=== PATIENT | male | born 1980 | race Caucasian/White ===

== ENCOUNTER 2023-11-09 22:25 | Emergency (ER) | payer MEDICAID, SELFPAY ==
[2023-11-09 22:34] VITALS: BP 121/79; PULSE 89; RESP 16; TEMP 36.2; O2SAT 96; BMI 34.9
[2023-11-09 22:56] LABS: MANUAL DIFF FLAG NO
[2023-11-09 22:57] LABS: Basophils Absolute Auto 0.1 X10*3/uL (0.0-0.2); Basophils Percent Auto 1.3 % (0-2); Eosinophils Absolute Auto 0.9 X10*3/uL (0.0-0.4); Eosinophils Percent Auto 12.1 % (0-4); Hemoglobin 13.3 g/dl (14.0-18.0); Imm Gran Abs Auto 0.02 X10*3/uL (0.00-0.03); Imm Gran Pct Auto 0.3 % (0.0-0.4); Lymphocytes Absolute Auto 1.7 X10*3/uL (1.2-4.9); Lymphocytes Percent Auto 22.6 % (20-40); Mean Corpuscular HGB Conc 34.1 g/dl (31.0-36.0); Mean Corpuscular Hemoglobin 28.8 pg (27.0-33.0); Mean Corpuscular Volume 84.4 fL (80.0-98.0); Monocytes Absolute Auto 0.7 X10*3/uL (0.1-1.2); Monocytes Percent Auto 9.3 % (2-11); Neutrophils Percent Auto 54.4 % (45-73); Platelet Count 267 X10*3/uL (160-400); Red Blood Count 4.62 X10*6/uL (4.60-5.80); Red Cell Distribution Width 12.7 % (11.0-16.0); White Blood Count 7.4 X10*3/uL (4.8-10.8)
[2023-11-09 23:12] LABS: Alanine Aminotransferase 13 U/L (0-40); Albumin Level 4.3 g/dL (3.5-5.0); Alkaline Phosphatase 54 U/L (39-117); Anion Gap 14 (12-20); Aspartate Amino Transferase 18 U/L (5-37); Bilirubin Total 0.3 mg/dL (0.0-1.0); Blood Urea Nitrogen 13 mg/dL (9-16); Calcium 9.3 mg/dL (8.4-10.2); Carbon Dioxide 22 mmol/L (22-29); Chloride 108 mmol/L (96-108); Creatinine Clr Calc Pharmacy 82.3; Estimated Glomerular Filt Rate > 60; Glucose Random 100 mg/dL (60-115); Potassium 3.8 mmol/L (3.3-5.1); Sodium 140 mmol/L (135-145); Total Protein 7.2 g/dL (6.5-8.0)
[2023-11-10] MEDS: Magnesium Hydrox/Alum Hydrox 30 ML ORAL.SUSP PO (00:30)
[2023-11-10] MEDS: Sucralfate Oral Suspension 1 GM/10 ML ORAL.SUSP PO (00:30)
[2023-11-10] MEDS: Lidocaine HCl Viscous 2 % 15 ML SOLUTION 10 ML MUCOUS MEM (00:30)
--- NOTE | 2023-11-10 01:09 | ED_ITS ---
HPI - Abdominal Pain General Chief Complaint: Abdominal Pain Stated Complaint: abd pain Time Seen by Provider: 11/10/23 00:55 Source: patient Mode of arrival: ambulatory History of Present Illness HPI narrative: 43-year-old male with complaints of epigastric pain that has been ongoing for 5 days and describes it as burning especially after eating he is tried taking Gas- X tablets without relief and has no primary care doctor. Related Data Previous Rx's Medication Instructions Recorded omeprazole 40 mg capsule,delayed 40 mg PO DAILY #30 caps 11/10/23 release Allergies Allergy/AdvReac Type Severity Reaction Status Date / Time No Known Allergies Allergy Verified 11/09/23 22:34 Review of Systems Review of Systems Pertinent positives and negatives as stated in HPI PMFSH Past Medical History Source: nursing notes reviewed Social History Social History Advance Directives: No Advance Directives Information Provided: No Physical Exam ED Vital Signs: Vital Signs - 24 hr 11/09/23 22:34 Temperature 97.1 F Pulse Rate 89 Respiratory Rate 16 Blood Pressure 121/79 Pulse Oximetry 96 Oxygen Delivery Method Room Air BMI result Body Mass Index 34.9 VITAL SIGNS: Reviewed. GENERAL: Well developed, well nourished, in no acute distress. HEAD: Normocephalic/atraumatic EYES: PERRLA, EOMI EARS: Ext canals without abnormality LUNGS: Normal breath sounds. No adventitious sounds or accessory muscle use. SpO2<96> CARDIOVASCULAR: Regular rate and rhythm without noted murmurs ABDOMEN: Soft, non-tender, non-distended with bowel sounds. MUSCULOSKELETAL: No tenderness, deformities, or effusions noted on gross inspection. EXTREMITIES: No cyanosis, clubbing or edema. SKIN: Inspection of the skin reveals no rashes NEUROLOGIC: Alert and oriented x 4. Strength and sensation to light touch were grossly intact x 4. Medical Decision Making Medical Decision Making MDM Narrative: 43-year-old male with history and clinical presentation, DDX: Gastritis, ulcer, no clinical suspicion for appendicitis/cholecystitis/pancreatitis and patient denies alcohol use. He denies any constitutional symptoms that would lend themselves to infectious etiology within the abdomen such as fever, chills, nausea, vomiting. Reviewed all investigations and hematologic indices are negative for leukocytosis or left shift, there is a normocytic anemia and no thrombocytopenia and no endorsement of any hematemesis. Chemistries seizure grossly within normal limits without evidence of RYAN/electrolyte or liver enzyme derangements. Patient received GI cocktail and Carafate and reports significant relief in symptoms. He is otherwise discharged on a course of omeprazole for 30 days. Differential Diagnosis Differential Diagnoses: The differential diagnosis associated with the presentation includes Please see the discussion above Admission/Observation Consideration of admission/observation: Escalation of care including admission/observation considered Please see the discussion above Lab Data MDM Lab Attestation statement: I reviewed the patient's lab results. Please see the discussion above 11/09/23 22:53 11/09/23 22:53 Labs: Lab Results 11/09/23 Range/Units 22:53 WBC 7.4 (4.8-10.8) X10*3/uL RBC 4.62 (4.60-5.80) X10*6/uL Hgb 13.3 L (14.0-18.0) g/dl Hct 39.0 L (42.0-52.0) % MCV 84.4 (80.0-98.0) fL MCH 28.8 (27.0-33.0) pg MCHC 34.1 (31.0-36.0) g/dl RDW 12.7 (11.0-16.0) % Plt Count 267 (160-400) X10*3/uL MPV 10.0 (9.4-12.4) fL Immature Gran % (Auto) 0.3 (0.0-0.4) % Neut % (Auto) 54.4 (45-73) % Lymph % (Auto) 22.6 (20-40) % [place] % (Auto) 9.3 (2-11) % Eos % (Auto) 12.1 H (0-4) % Baso % (Auto) 1.3 (0-2) % Lymph # (Auto) 1.7 (1.2-4.9) X10*3/uL [place] # (Auto) 0.7 (0.1-1.2) X10*3/uL Eos # (Auto) 0.9 H (0.0-0.4) X10*3/uL Baso # (Auto) 0.1 (0.0-0.2) X10*3/uL Abs Immat Gran (auto) 0.02 (0.00-0.03) X10*3/uL Absolute Neuts (auto) 4.0 (2.0-8.3) x10*3/uL Absolute Nucleated RBC 0.000 (0.0-0.012) X10*3/uL Nucleated RBC % (auto) 0.0 (0.0-0.2) /100WBC Sodium 140 (135-145) mmol/L Potassium 3.8 (3.3-5.1) mmol/L Chloride 108 (96-108) mmol/L Carbon Dioxide 22 (22-29) mmol/L Anion Gap 14 (12-20) BUN 13 (9-16) mg/dL Creatinine 1.00 (0.5-1.4) mg/dL Estim Creat Clear Calc 82.3 Estimated GFR > 60 Random Glucose 100 (60-115) mg/dL Calcium 9.3 (8.4-10.2) mg/dL Total Bilirubin 0.3 (0.0-1.0) mg/dL AST 18 (5-37) U/L ALT 13 (0-40) U/L Alkaline Phosphatase 54 (39-117) U/L Total Protein 7.2 (6.5-8.0) g/dL Albumin 4.3 (3.5-5.0) g/dL Medications Administered Discontinued Medications Generic Name Dose Route Start Last Admin Trade Name Freq PRN Reason Stop Dose Admin Al Hydroxide/Mg Hydroxide 30 ml 11/09/23 23:58 11/10/23 00:30 Magnesium Hydrox/Alum Hydrox 30 Ml Oral.Susp PO 11/09/23 23:59 30 ml ONCE ONE Administration Lidocaine HCl 10 ml 11/09/23 23:58 11/10/23 00:30 Lidocaine Hcl Viscous 2 % 15 Ml Solution MUCOUS MEM 11/09/23 23:59 10 ml ONCE ONE Administration Sucralfate 1 gm 11/09/23 23:58 11/10/23 00:30 Sucralfate Oral Suspension 1 Gm/10 Ml Oral.Susp PO 11/09/23 23:59 1 gm ONCE ONE Administration Discharge Plan Discharge Clinical Impression: Gastritis, GERD (gastroesophageal reflux disease) Patient Disposition: Home, Self-Care Instructions: Gastritis (ED), Diet for Stomach Ulcers and Gastritis (ED), Gastroesophageal Reflux Disease (ED) Additional Instructions: 1. Dei-lhe tiff receita para ajudar a controlar os sintomas de ?cido que voc? est? sentindo. 2. Por favor, estabele?a atendimento com um m?dico de aten??o prim?luciano o mais r?pido poss?radha. Retorne ao pronto-nirav se houver agravamento dos sintomas. 1. I have given you a prescription to help control the acid symptoms that you are experiencing. 2. Please establish care with a primary care doctor at your earliest convenience. Return to the ER for any worsening symptoms. Prescriptions: New omeprazole 40 mg capsule,delayed release(DR/EC) 40 mg PO DAILY Qty: 30 0RF Print Language: Mongolian
[2023-11-10 01:22] VITALS: PULSE 80; RESP 16; O2SAT 96
== END 2023-11-10 01:23 | disposition home or self-care (01) ==
PROVIDERS: Emergency Provider Student in an Organized Health Care Education/Training Program
DX: K29.70 Gastritis, unspecified, without bleeding (principal); K21.9 Gastro-esophageal reflux disease without esophagitis; R10.13 Epigastric pain; Z79.899 Other long term (current) drug therapy
CPT/HCPCS: 36415; 80053; 85025; 99283

== ENCOUNTER 2025-06-13 11:51 | Emergency (ER) | payer MEDICAID, OTHER, SELFPAY ==
--- NOTE | ~2025-06-13 | XR_ITS ---
EXAMINATION: XR THUMB, LEFT CLINICAL INFORMATION: L thumb lac while cutting wood COMPARISON: None available. TECHNIQUE: Three views of the left thumb. FINDINGS: No definite fracture, dislocation, or suspicious bone lesion. There is normal alignment. Joint spaces are normal. Soft tissues appear normal. No radiopaque foreign body or soft tissue gas present. XR/XR finger LT min 2V IMPRESSION: Normal radiographs of the left thumb. Electronically signed by: Charlie Curry MD 06/13/2025 12:51 PM EDT
[2025-06-13 11:57] VITALS: PULSE 68; RESP 18; TEMP 36.3; O2SAT 98; BMI 29.9
--- NOTE | 2025-06-13 12:05 | ED.WOUNDLAC ---
HPI - Wound/Laceration General Chief Complaint: Wound/Laceration Stated Complaint: Finger lac Time Seen by Provider: 06/13/25 11:59 Source: patient, family and bilingual interpreter (Nauruan [place] Irish) Mode of arrival: ambulatory Limitations: language barrier (Nauruan Northern Irish) History of Present Illness ED Provider: KARINA LEUNG PA-C HPI narrative: 44 year old left hand dominant male presents to the ED today for evaluation of laceration to left thumb sustained yesterday while using a saw to cut wood. Reports the saw slipped, causing a laceration to the tip of his left thumb. He does not believe there is any wood/ metal retained in the laceration. He immediately washed the area out. He states is tetanus is UTD as of 3 years ago. Denies difficulty moving the left thumb, denies numbness/weakness/thingling. Related Data Previous Rx's ?Medication ?Instructions ?Recorded omeprazole 40 mg capsule,delayed 40 mg PO DAILY #30 caps 11/10/23 release neomycin-bacitracn Zn-polymyx 3.5 1 appl topical DAILY #14.2 grams 06/13/25 mg-400 unit-5,000 unit/gram top oint (Neosporin ([id number])) Allergies Allergy/AdvReac Type Severity Reaction Status Date / Time No Known Allergies Allergy Verified 06/13/25 12:00 Review of Systems Review of Systems: Yes all other systems are reviewed and are negative PMFSH Past Medical History Attestation statement: The following information was validated with the patient. Source: old records reviewed and nursing notes reviewed Social History Social History Advance Directives: No Advance Directives Information Provided: Yes Physical Exam Vital Signs: Vital Signs: Last Vital Signs Temp 97.3 F 06/13/25 14:13 Pulse 68 06/13/25 14:13 Resp 18 06/13/25 14:13 BP 00/00 L 06/13/25 14:13 Pulse Ox 98 06/13/25 14:13 O2 Del Method Room Air 06/13/25 14:13 BMI result Body Mass Index 29.9 General: Well appearing, in no acute distress. Skin: +2 cm linear laceration noted to left 1st digit just proximal to nail base wrapping around to finger pad. no active bleeding or obvious FB. no discharge/crusting/erythema. ttp. no nail involvement. Head: Normocephalic, atraumatic. EENT: Hearing is intact b/l. Conjunctiva clear. Sclera is anicteric. PERRLA. EOM intact. Moist mucous membranes.? Neck: Supple without LAD. FROM. Trachea midline.? Cardiac: Chest wall symmetric. RRR Back: No midline spinous or paraspinal tenderness. No step off deformity. Ext: +FROM intact to left 1st digit. no noted swelling or sausage digit. sensation intact. 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 Neuro: AOx3. Normal speech. Ambulating with steady gait. Course Course Course Narrative: X-ray left thumb without radiopaque foreign body. Laceration soaked in saline and iodine. No noted retained foreign bodies. Deep structures intact. No concern for ligament or tendon injury. No nail bed involvement. Laceration repaired with 3 3-0 sutures. The center of the laceration was difficult to approximate due to swelling secondary to sustaining laceration approx 24 hours ago. Patient was not tolerating the middle suture so Steri-Strips were placed. advised to return to the ED for suture removal. Patient has remained stable throughout ED visit today. Discussed worrisome signs and symptoms and when to return to the ED. All questions answered at this time. Patient is agreeable with disposition and stable for discharge. Medications Administered Discontinued Medications Generic Name Dose Route Start Last Admin Trade Name Freq PRN Reason Stop Dose Admin Lidocaine HCl 10 ml 06/13/25 12:04 06/13/25 12:17 Lidocaine Hcl 1 % Mpf 5 Ml Vial INFILTRATI 06/13/25 12:05 10 ml ONCE ONE Administration Medical Decision Making Medical Decision Making [facility] Narrative: 44 year old left hand dominant male presents to the ED today for evaluation of laceration to left thumb sustained yesterday while using a saw to cut wood. vitals stable, he is well appearing and in NAD. on exam, 2 cm linear laceration noted to left 1st digit just proximal to nail base wrapping around to finger pad. no active bleeding or obvious FB. no discharge/crusting/erythema. ttp. no nail involvement. Differential diagnosis includes laceration, abrasion. Unlikely fracture, retained foreign body, ligament/tendon injury, nail bed injury. Plan for x-ray, laceration repair and disposition. Differential Diagnosis Differential Diagnoses: The differential diagnosis associated with the presentation includes as above. Admission/Observation not indicated Independent Interpretation I performed an independent interpretation of an: Plain X-Ray Interpretation: X-ray left thumb without radiopaque foreign body Radiology Impression Discussion of test interpretation with radiology: I have reviewed the radiologist's reading. Radiologist Impression: Procedure(s): XR finger LT min 2V Accession Number(s): [id number] cc: Physician,Unknown ; Karina Leung~ Reason for Exam: L thumb lac while cutting wood EXAMINATION: XR THUMB, LEFT CLINICAL INFORMATION: L thumb lac while cutting wood COMPARISON: None available. TECHNIQUE: Three views of the left thumb. FINDINGS: No definite fracture, dislocation, or suspicious bone lesion. There is normal alignment. Joint spaces are normal. Soft tissues appear normal. No radiopaque foreign body or soft tissue gas present. XR/XR finger LT min 2V IMPRESSION: Normal radiographs of the left thumb. Electronically signed by: Charlie Curry MD 06/13/2025 12:51 PM EDT Prescription Management I considered prescription management with: Pain Medication Social Determinants Patient?s care significantly limited by Social Determinants of Health including: Other Social Determinant of Health Procedures Laceration Laceration 1: Site: hand (1st digit) Side (If applicable): left Size (cm): 2 Description: linear Depth: simple, single layer Local Anesthetic: lidocaine 1% Amount of anesthesia used (mL): 10 Pre-repair: wound explored, irrigated extensively and deep structures intact Skin layer closed with: nylon Size (cm): 3-0 Number of sutures: 3 Technique: simple, interrupted Nerve Block Nerve Block 1: Time out performed: No Local Anesthetic: lidocaine 1% Amount of anesthesia used (mL): 10 Side: left Procedure Successful: Yes Patient Tolerated Procedure: well Complications: none Critical Care Time Critical Care Time Critical Care Time: No Discharge Plan Discharge Clinical Impression: Laceration Patient Disposition: Home, Self-Care Instructions: Laceration (ED), Skin Adhesive Strips (ED) Additional Instructions: You have been evaluated in the Emergency Department today for a laceration to your left thumb. Your laceration was repaired in the ED with 3 sutures.? Please keep the area surrounding the laceration clean and dry. Do not get the area wet for 24 hours. After 24 hours, you may clean the area with a non-scented soap and pat to dry. Please keep the area out of the sunlight for the next 6 months to help prevent scarring.? If you develop redness or swelling at the site of your laceration or note any discharge/ fluid coming from the laceration, please come back to the ER for a wound check. The xray of your left thumb does not demonstrate fracture or retained foriegn body. I recommend you take 600mg ibuprofen every 6 hours or tylenol 650mg every 6 hours as needed for pain. If needed, you can alternate these medications so that you take one medication every 3 hours. For example, at noon take ibuprofen, then at 3pm take tylenol, then at 6pm take ibuprofen. Please follow up with your primary care physician in 7-10 days for suture removal. You may also return to the ER or another urgent care facility for this service. Return to the Emergency Department if you experience discharge from your laceration, redness around your laceration, warmth around your laceration, fever, vomiting, numbness, tingling, or any other concerning symptoms. In the case of an emergency call 911. Prescriptions: New Neosporin (nla-cpc-wlofe) 3.5mg-400 unit- 5,000 unit/gram ointment 1 appl topical DAILY Qty: 14.2 0RF No Action omeprazole 40 mg capsule,delayed release(DR/EC) 40 mg PO DAILY Qty: 30 0RF Referrals: Physician,Unknown J [Primary Care Provider, Medical] Interventions: ED Discharge Assessment Last Done: 06/13/25 14:13 Discharge Date/Time: 06/13/25 14:14 Print Language: Northern Irish
[2025-06-13] MEDS: Lidocaine HCl 1 % MPF 5 ML VIAL 10 ML INFILTRATI (12:17)
[2025-06-13 14:13] VITALS: BP 00/00; PULSE 68; RESP 18; TEMP 36.3; O2SAT 98
--- OUTSIDE RECORDS SUMMARY | 2025-06-13 14:37 | XMS_ITS | Clinical Summary ---
Author Organization [facility] Address [address] [address] [place] [address] Care Team Providers Care Tester Sound Name Role Phone Unavailable Primary Care Provider Unavailabl e Source Comments PLEASE NOTE, if this patient is a minor, it may be UNLAWFUL to discuss sensitive information that is contained in these records (such as FAMILY PLANNING, MENTAL HEALTH or SUBSTANCE ABUSE) with the minor patient's parent or other person without the patient's specific authorization.[facility] Medications No known medications Active Problems No known active problems Social History Tobacco Use Types Packs/Day Years Used Date Smoking Tobacco: Never Assessed Social Connections Answer Date Recorded Connectedness 0 06/26/2024 Financial Resource Strain Answer Date R ecorded Financial Resource Strain 0 2022 Stress Answer Date Recorded Stress 0 08/30/2023 Physical Activity Answer Date Recorded Physical Activity 0 08/30/2023 Food Insecurity Answer Date Recorded Food 0 07/07/2024 Transportation Needs Answer Date Record ed Transportation 0 08/30/2023 Housing Stability Answer Date Recorded Housing 0 08/30/2023 Safety and Environment Answer Date Neo rded Safety 0 08/30/2023 Utilities Answer Date Recorded Utilities 0 08/30/2023 Employment Answer Date Recorded Stress 0 06/26/2024 Sex and Gender Information Value Date Recorded Sex Assigned at Not on file Legal Sex Male 10:07 AM PDT Gender Identity Not on file Sexual Orientation Not on file Last Filed Vital Signs Vital Sign Reading Time Taken Comments Blood Pressure 120/80 01/07/2024 2:54 PM EDT Pulse 75 01/07/2024 2:54 PM EDT Temperature - - Respiratory Rate - - Oxygen Saturation - - Inhaled Oxygen Concentration - - Weight - - Height - - Body Mass Index - - Plan of Treatment Health Maintenance Due Date Last Done Comments Anxiety Screening 1978 Dental Prophy 1978 Diabetes Screening 1978 Hepatitis C Screening 1978 Lipid Screening 1978 Tobacco Screening 1978 HIV Screening 1993 Imm-DTaP/Tdap/Td (1 - Tdap) 1997 Imm-Hepatitis B (1 of 3 - 19+ 3-dose series) CT Colonography 2023 Colonoscopy 2023 Colorectal Cancer Screening 2023 FIT/gFOBT 2023 Fecal DNA 2023 Flexible Sigmoidoscopy 2023 [id number] ( - season) 2024 Alcohol and Drug Screen 10/12/2024 Depression Annual Screen 10/12/2024 Hypertension Screening (#1) 01/06/2025 Dental BW 01/08/2025 01/07/2024 Dental Examination 01/08/2025 01/07/2024 Dental Perio Charting 01/08/2025 01/07/2024 Imm-Influenza (#1) 2025 Dental FMX/Pano 01/08/2029 01/07/2024 Procedures Procedure Name Priority Date/Time Associated Diagnosis Comments Full INTRAORAL - COMP SERIES OF RADIOGRAPHIC IMAGES Routine 01/07/2024 2:20 PM EDT Encounter for dental examination Full COMP ORAL EVALUATION - NEW/ESTABLISHED PATIENT Routine 01/07/2024 2:20 PM EDT Encounter for dental examination from Last 3 Months or Most Recently Relevant to Health Maintenance [place] [facility] [place] [id number]
== END 2025-06-13 14:14 | disposition home or self-care (01) ==
LOC: HO.ED 13:22
PROVIDERS: Emergency Provider Emergency Medicine
DX: S61.012A Laceration without foreign body of left thumb without damage to nail, initial encounter (principal); T14.90XA Injury, unspecified, initial encounter; W27.0XXA Contact with workbench tool, initial encounter; Y93.9 Activity, unspecified; Y92.9 Unspecified place or not applicable; Y99.9 Unspecified external cause status
CPT/HCPCS: 73140; 99282; 99284; J2003

== ENCOUNTER → 2025-06-13 12:05 | Outpatient (BNV) | payer MEDICAID, SELFPAY | PROVIDERS: Emergency Provider Emergency Medicine; Visit Provider Radiology Diagnostic Radiology | DX: S61.012A Laceration without foreign body of left thumb without damage to nail, initial encounter (principal); W31.2XXA Contact with powered woodworking and forming machines, initial encounter | CPT/HCPCS: 73140 ==